=== PATIENT | male | born 1965 | race Caucasian/White ===

== ENCOUNTER 2021-12-14 18:40 | Inpatient (IN) | payer MEDICAID ==
[~2021-12-14] VITALS: Ht 170.2 cm; Wt 76.5 kg
[2021-12-14] MEDS ORDERED: SODIUM CHLORIDE 0.9% 500 ML IV ONE (19:45)
[2021-12-14 21:16] LABS: Basophils # (auto) 0 10 ^3/uL (0-0.2); Eosinophils # (auto) 0.1 10 ^3/uL (0-0.8); Monocytes # (auto) 1.2 10 ^3/uL (0-1.3); Monocytes % (auto) 7.3 % (0.0-12.0); Red Cell Distribution Width 15.3 % (11.8-14.3)
[2021-12-14 21:17] LABS: Basophils % (auto) 0.3 % (0.0-2.0); Eosinophils % (auto) 0.6 % (0.0-7.0); Hematocrit 39.1 % (41.0-53.0); Hemoglobin 12.6 g/dL (13.5-17.5); Lymphocytes # (auto) 0.7 10 ^3/uL (0.4-5.4); Lymphocytes % (auto) 4.6 % (10.0-50.0); Mean Corpuscular Hemoglobin 27.8 pg (28.0-32.0); Mean Corpuscular Hgb Conc. 32.4 g/dL (32.0-36.0); Mean Corpuscular Volume 85.9 fL (80.0-100.0); Neutrophils % (auto) 87.2 % (37.0-80.0); Red Blood Cells 4.55 10^6/uL (4.5-5.90)
[2021-12-14 21:33] LABS: Albumin 2.4 g/dL (3.4-5.0)
[2021-12-14 21:36] LABS: BUN/Creatinine Ratio 14.6; Bilirubin, Total 0.2 mg/dL (0.2-1.0); Total Protein 7.9 g/dL (6.4-8.2)
[2021-12-14 21:56] LABS: Urine Bacteria NONE SEEN /hpf (None Seen); Urine Blood Negative /uL (Negative); Urine Hyaline Cast FEW /lpf (0 - 2); Urine Specific Gravity 1.013 (1.001-1.035); Urine WBC 27 /hpf (0 - 3)
[2021-12-14] MEDS ORDERED: SODIUM CHLORIDE 0.9% 1,000 ML IV ONE (22:15)
[2021-12-14] MEDS ORDERED: VANCOMYCIN 1GM/250ML 250 ML IV ONE (22:15)
[2021-12-14] MEDS ORDERED: PIPERACILLIN-TAZOB 3.375GM 100 ML IV ONE (22:15)
[2021-12-14] MEDS ORDERED: POTASSIUM CHL 20 Meq TABLET PO ONE (23:00)
[2021-12-14] MEDS ORDERED: MORPHINE SULFATE INJ 2 MG/ml SYRG IV PRN (23:00)
[2021-12-14] MEDS ORDERED: TEMAZEPAM 15 MG CAP PO PRN (23:00)
[2021-12-14] MEDS ORDERED: ONDANSETRON HCL 4 MG/2 ML VIAL IV PRN (23:00)
[2021-12-14] MEDS ORDERED: VANCOMYCIN PER PHARMACY 0 MG IV SCH (23:00)
[2021-12-14] MEDS ORDERED: ACETAMINOPHEN 325 MG TAB PO PRN (23:00)
[2021-12-14] MEDS ORDERED: HYDROcodone-ACET 5/325MG TAB PO PRN (23:00)
[2021-12-14] MEDS: SODIUM CHLORIDE 0.9% 1,000 ML IV SCH (23:44)
[2021-12-15 06:40] LABS: Basophils # (auto) 0.1 10 ^3/uL (0-0.2); Basophils % (auto) 0.3 % (0.0-2.0); Eosinophils # (auto) 0.1 10 ^3/uL (0-0.8); Eosinophils % (auto) 0.8 % (0.0-7.0); Hematocrit 36.7 % (41.0-53.0); Hemoglobin 11.7 g/dL (13.5-17.5); Lymphocytes # (auto) 0.7 10 ^3/uL (0.4-5.4); Lymphocytes % (auto) 4.5 % (10.0-50.0); Mean Corpuscular Hemoglobin 27.8 pg (28.0-32.0); Mean Corpuscular Hgb Conc. 31.8 g/dL (32.0-36.0); Mean Corpuscular Volume 87.3 fL (80.0-100.0); Monocytes # (auto) 1.2 10 ^3/uL (0-1.3); Monocytes % (auto) 7.2 % (0.0-12.0); Neutrophils # (auto) 14.3 10 ^3/uL (1.6-8.6); Neutrophils % (auto) 87.2 % (37.0-80.0); Red Blood Cells 4.21 10^6/uL (4.5-5.90); Red Cell Distribution Width 15.2 % (11.8-14.3); White Blood Cell 16.4 10^3/uL (4.4-10.8)
[2021-12-15 06:56] LABS: Albumin 2.1 g/dL (3.4-5.0); Calcium 8.6 mg/dL (8.5-10.1); Potassium 3.4 mmol/L (3.5-5.1)
[2021-12-15 06:59] LABS: BUN/Creatinine Ratio 18.2
[2021-12-15 07:00] LABS: Bilirubin, Total 0.2 mg/dL (0.2-1.0); Total Protein 6.7 g/dL (6.4-8.2)
[2021-12-15] MEDS: cefTRIAXone 1GM/50ML D5W 50 ML IV SCH (09:18)
[2021-12-15] MEDS: SODIUM CHLORIDE 0.9% 1,000 ML IV SCH ×2 (09:38→23:06)
[2021-12-15] MEDS: ENOXAPARIN SOD 30 MG/0.3 ML SYRINGE SC SCH (10:12)
[2021-12-15] MEDS: PANTOPRAZOLE 40 MG TAB PO SCH (10:12)
[2021-12-15 17:00] VITALS: BP 130/76
[2021-12-15] MEDS ORDERED: VANCOMYCIN 1GM/250ML 250 ML IV ONE (17:00)
[2021-12-15] MEDS ORDERED: IBUP600T27 PO (18:08)
[2021-12-15 19:23] LABS: Magnesium 1.9 mg/dL (1.6-2.6); Phosphorus 3.5 mg/dL (2.5-4.90)
[2021-12-15 20:32] LABS: Urine Bacteria FEW /hpf (None Seen); Urine Blood Negative /uL (Negative); Urine Specific Gravity 1.007 (1.001-1.035); Urine WBC 5 /hpf (0 - 3)
[2021-12-15 21:55] VITALS: BP 121/75
[2021-12-16 04:45] VITALS: BP 148/96
[2021-12-16] MEDS: SODIUM CHLORIDE 0.9% 1,000 ML IV SCH (05:40)
[2021-12-16 06:47] LABS: Eosinophils # (auto) 0.1 10 ^3/uL (0-0.8); Neutrophils # (auto) 8.1 10 ^3/uL (1.6-8.6)
[2021-12-16 06:51] LABS: Basophils # (auto) 0 10 ^3/uL (0-0.2); Basophils % (auto) 0.5 % (0.0-2.0); Eosinophils % (auto) 0.9 % (0.0-7.0); Hematocrit 34.6 % (41.0-53.0); Hemoglobin 11.2 g/dL (13.5-17.5); Lymphocytes % (auto) 9.4 % (10.0-50.0); Mean Corpuscular Hgb Conc. 32.2 g/dL (32.0-36.0); Mean Corpuscular Volume 86.9 fL (80.0-100.0); Monocytes % (auto) 9.8 % (0.0-12.0); Neutrophils % (auto) 79.4 % (37.0-80.0); Red Blood Cells 3.99 10^6/uL (4.5-5.90); Red Cell Distribution Width 15.3 % (11.8-14.3); White Blood Cell 10.2 10^3/uL (4.4-10.8)
[2021-12-16 07:02] LABS: Calcium 7.8 mg/dL (8.5-10.1); Potassium 3.6 mmol/L (3.5-5.1)
[2021-12-16 08:00] VITALS: BP 149/60
[2021-12-16 09:00] VITALS: BP 149/90
[2021-12-16] MEDS: cefTRIAXone 1GM/50ML D5W 50 ML IV SCH (09:11)
[2021-12-16] MEDS: ENOXAPARIN SOD 30 MG/0.3 ML SYRINGE SC SCH (09:12)
[2021-12-16] MEDS: PANTOPRAZOLE 40 MG TAB PO SCH (09:12)
[2021-12-16] MEDS: VANCOMYCIN 1GM/250ML 250 ML IV SCH ×2 (11:39→23:12)
[2021-12-16 12:23] LABS: Hepatitis C Antibody Negative (Negative)
[2021-12-16 13:00] VITALS: BP 149/89
[2021-12-16] MEDS ORDERED: POTASSIUM EFFERVESENT TAB 25 MEQ PO ONE (13:30)
[2021-12-16] MEDS: SODIUM BICARBONATE 50ML VIAL 50 ML in SOD CHL 0.45% 1,000 ML IV SCH (14:34)
[2021-12-16 16:27] VITALS: BP 139/94
[2021-12-16 22:00] VITALS: BP 132/80
[2021-12-17] MEDS: SODIUM BICARBONATE 50ML VIAL 50 ML in SOD CHL 0.45% 1,000 ML IV SCH ×3 (00:44→23:00)
[2021-12-17 05:00] VITALS: BP 139/83
[2021-12-17 06:21] LABS: Basophils # (auto) 0.1 10 ^3/uL (0-0.2); Eosinophils # (auto) 0.1 10 ^3/uL (0-0.8); Hemoglobin 10.7 g/dL (13.5-17.5); Lymphocytes # (auto) 1.1 10 ^3/uL (0.4-5.4); Monocytes # (auto) 1.1 10 ^3/uL (0-1.3); White Blood Cell 10.8 10^3/uL (4.4-10.8)
[2021-12-17 06:24] LABS: Basophils % (auto) 0.6 % (0.0-2.0); Eosinophils % (auto) 0.9 % (0.0-7.0); Hematocrit 32.4 % (41.0-53.0); Mean Corpuscular Hemoglobin 28.1 pg (28.0-32.0); Mean Corpuscular Hgb Conc. 32.9 g/dL (32.0-36.0); Mean Corpuscular Volume 85.3 fL (80.0-100.0); Neutrophils # (auto) 8.5 10 ^3/uL (1.6-8.6); Neutrophils % (auto) 78.5 % (37.0-80.0); Red Cell Distribution Width 14.9 % (11.8-14.3)
[2021-12-17 06:25] LABS: Calcium 7.7 mg/dL (8.5-10.1); Potassium 3.4 mmol/L (3.5-5.1)
[2021-12-17 06:27] LABS: BUN/Creatinine Ratio 16.5
[2021-12-17 09:00] VITALS: BP 129/80
[2021-12-17] MEDS: cefTRIAXone 1GM/50ML D5W 50 ML IV SCH (09:40)
[2021-12-17] MEDS: PANTOPRAZOLE 40 MG TAB PO SCH (09:40)
[2021-12-17] MEDS: ENOXAPARIN SOD 40 MG/0.4 ML SYRINGE SC SCH (09:41)
[2021-12-17] MEDS: VANCOMYCIN 1GM/250ML 250 ML IV SCH ×2 (12:07→23:33)
[2021-12-17 13:01] VITALS: BP 126/88
[2021-12-17 16:34] VITALS: BP 148/87
[2021-12-17] MEDS ORDERED: POTASSIUM EFFERVESENT TAB 25 MEQ GT ONE (18:15)
[2021-12-17 22:00] VITALS: BP 138/89
[2021-12-18 05:00] VITALS: BP 136/86
[2021-12-18 06:24] LABS: Basophils # (auto) 0.1 10 ^3/uL (0-0.2); Hemoglobin 10.9 g/dL (13.5-17.5); Lymphocytes # (auto) 1.2 10 ^3/uL (0.4-5.4); White Blood Cell 10.9 10^3/uL (4.4-10.8)
[2021-12-18 06:26] LABS: Basophils % (auto) 0.8 % (0.0-2.0); Eosinophils # (auto) 0.1 10 ^3/uL (0-0.8); Eosinophils % (auto) 1.3 % (0.0-7.0); Hematocrit 32.8 % (41.0-53.0); Mean Corpuscular Hgb Conc. 33.1 g/dL (32.0-36.0); Mean Corpuscular Volume 84.5 fL (80.0-100.0); Monocytes % (auto) 8.9 % (0.0-12.0); Neutrophils # (auto) 8.5 10 ^3/uL (1.6-8.6); Red Blood Cells 3.88 10^6/uL (4.5-5.90); Red Cell Distribution Width 14.8 % (11.8-14.3)
[2021-12-18 06:45] LABS: BUN/Creatinine Ratio 13.7; Calcium 7.9 mg/dL (8.5-10.1); Potassium 3.5 mmol/L (3.5-5.1)
[2021-12-18 08:00] VITALS: BP 130/83
[2021-12-18] MEDS: SODIUM BICARBONATE 50ML VIAL 50 ML in SOD CHL 0.45% 1,000 ML IV SCH ×2 (09:48→18:00)
[2021-12-18] MEDS: cefTRIAXone 1GM/50ML D5W 50 ML IV SCH (09:49)
[2021-12-18] MEDS: PANTOPRAZOLE 40 MG TAB PO SCH (09:50)
[2021-12-18] MEDS: ENOXAPARIN SOD 40 MG/0.4 ML SYRINGE SC SCH (09:51)
[2021-12-18] MEDS: VANCOMYCIN 1GM/250ML 250 ML IV SCH (12:34)
[2021-12-18 13:00] VITALS: BP 130/87
[2021-12-18 16:48] VITALS: BP 139/86
[2021-12-18 22:00] VITALS: BP 147/87
[2021-12-19] MEDS: VANCOMYCIN 1GM/250ML 250 ML IV SCH (03:07)
[2021-12-19] MEDS: SODIUM BICARBONATE 50ML VIAL 50 ML in SOD CHL 0.45% 1,000 ML IV SCH (04:30)
[2021-12-19 05:00] VITALS: BP 140/87
[2021-12-19 06:06] LABS: Basophils # (auto) 0.1 10 ^3/uL (0-0.2); Eosinophils # (auto) 0.2 10 ^3/uL (0-0.8); Hemoglobin 10.9 g/dL (13.5-17.5); Red Cell Distribution Width 14.9 % (11.8-14.3)
[2021-12-19 06:11] LABS: Basophils % (auto) 0.7 % (0.0-2.0); Eosinophils % (auto) 1.6 % (0.0-7.0); Hematocrit 34.3 % (41.0-53.0); Lymphocytes # (auto) 1.2 10 ^3/uL (0.4-5.4); Lymphocytes % (auto) 10.1 % (10.0-50.0); Mean Corpuscular Hemoglobin 27.2 pg (28.0-32.0); Mean Corpuscular Hgb Conc. 31.7 g/dL (32.0-36.0); Mean Corpuscular Volume 85.8 fL (80.0-100.0); Monocytes # (auto) 0.8 10 ^3/uL (0-1.3); Neutrophils # (auto) 9.6 10 ^3/uL (1.6-8.6); Neutrophils % (auto) 80.6 % (37.0-80.0); Red Blood Cells 3.99 10^6/uL (4.5-5.90)
[2021-12-19 06:31] LABS: BUN/Creatinine Ratio 14.1; Calcium 8.1 mg/dL (8.5-10.1); Potassium 4.1 mmol/L (3.5-5.1)
[2021-12-19 08:00] VITALS: BP 129/96
[2021-12-19 09:00] VITALS: BP 129/96
[2021-12-19] MEDS: cefTRIAXone 1GM/50ML D5W 50 ML IV SCH (10:45)
[2021-12-19] MEDS: PANTOPRAZOLE 40 MG TAB PO SCH (10:46)
[2021-12-19] MEDS: ENOXAPARIN SOD 40 MG/0.4 ML SYRINGE SC SCH (10:46)
[2021-12-19] MEDS ORDERED: CEPH-510 PO (11:05)
[2021-12-19 11:53] VITALS: BP 129/96
== END 2021-12-19 12:30 | disposition home or self-care (01) | DRG 720 ==
LOC: ER 18:42 → OVERFLOW 23:03 → WEST WING 12-15 17:15
PROVIDERS: ADMIT Nurse Practitioner; ATTEND Internal Medicine Pulmonary Disease
DX: A41.9 Sepsis, unspecified organism (principal); N17.0 Acute kidney failure with tubular necrosis; E87.1 Hypo-osmolality and hyponatremia; E88.09 Other disorders of plasma-protein metabolism, not elsewhere classified; D72.829 Elevated white blood cell count, unspecified; S80.01XA Contusion of right knee, initial encounter; L03.115 Cellulitis of right lower limb; E87.6 Hypokalemia; N18.9 Chronic kidney disease, unspecified; Z20.822 Contact with and (suspected) exposure to COVID-19; B95.1 Streptococcus, group B, as the cause of diseases classified elsewhere; W18.39XA Other fall on same level, initial encounter; Y93.89 Activity, other specified; Y92.89 Other specified places as the place of occurrence of the external cause; Y99.8 Other external cause status; Z83.3 Family history of diabetes mellitus
CPT/HCPCS: 36415; 73700; 76775; 80048; 80053; 80202; 81001; 82306; 82570; 83605; 83735; 83880; 83935; 83970; 84100; 84156; 84300; 84484; 85025; 86803; 87040; 87081; 87205; 87340; 93005; 93971; 96361; 96365; 96366; 96367; 96368; 96372; 96375; G0378; J0696; J2543

== ENCOUNTER 2021-12-27 14:52 | Inpatient (IN) | payer MEDICAID ==
[~2021-12-27] VITALS: Ht 170.2 cm; Wt 77.8 kg
[~2021-12-27 14:52] MED LIST: CEPH-510 PO; IBUP600T27 PO
[2021-12-27] MEDS ORDERED: CEFEPIME 1GM/ 50ML 50 ML IV ONE (20:00)
[2021-12-27] MEDS ORDERED: VANCOMYCIN 1GM/250ML 250 ML IV ONE (20:00)
[2021-12-27 20:47] LABS: Basophils # (auto) 0.1 10 ^3/uL (0-0.2)
[2021-12-27 20:49] LABS: Eosinophils # (auto) 0.2 10 ^3/uL (0-0.8); Eosinophils % (auto) 2.5 % (0.0-7.0); Hematocrit 33.4 % (41.0-53.0); Hemoglobin 10.4 g/dL (13.5-17.5); Lymphocytes # (auto) 1.5 10 ^3/uL (0.4-5.4); Lymphocytes % (auto) 16.9 % (10.0-50.0); Mean Corpuscular Hemoglobin 27.2 pg (28.0-32.0); Mean Corpuscular Hgb Conc. 31.1 g/dL (32.0-36.0); Mean Corpuscular Volume 87.3 fL (80.0-100.0); Monocytes # (auto) 0.7 10 ^3/uL (0-1.3); Monocytes % (auto) 7.6 % (0.0-12.0); Neutrophils # (auto) 6.6 10 ^3/uL (1.6-8.6); Red Blood Cells 3.83 10^6/uL (4.5-5.90); Red Cell Distribution Width 15.4 % (11.8-14.3); White Blood Cell 9.2 10^3/uL (4.4-10.8)
[2021-12-27 21:05] LABS: Albumin 2.9 g/dL (3.4-5.0); Calcium 8.5 mg/dL (8.5-10.1); Potassium 3.8 mmol/L (3.5-5.1)
[2021-12-27 21:14] LABS: BUN/Creatinine Ratio 23.5; Bilirubin, Total 0.2 mg/dL (0.2-1.0); CRP High Sensitivity 1.83 mg/dL (< 0.3); Total Protein 7.7 g/dL (6.4-8.2)
[2021-12-27] MEDS ORDERED: TEMAZEPAM 15 MG CAP PO PRN (23:00)
[2021-12-27] MEDS ORDERED: HYDROcodone-ACET 5/325MG TAB PO PRN (23:00)
[2021-12-27] MEDS ORDERED: ONDANSETRON HCL 4 MG/2 ML VIAL IV PRN (23:00)
[2021-12-27] MEDS ORDERED: ACETAMINOPHEN 325 MG TAB PO PRN (23:00)
[2021-12-28 05:10] LABS: Basophils # (auto) 0.1 10 ^3/uL (0-0.2); Lymphocytes # (auto) 0.9 10 ^3/uL (0.4-5.4); Lymphocytes % (auto) 9.9 % (10.0-50.0); Monocytes # (auto) 0.7 10 ^3/uL (0-1.3); White Blood Cell 8.8 10^3/uL (4.4-10.8)
[2021-12-28 05:12] LABS: Basophils % (auto) 0.7 % (0.0-2.0); Eosinophils # (auto) 0.4 10 ^3/uL (0-0.8); Eosinophils % (auto) 4.1 % (0.0-7.0); Hematocrit 30.9 % (41.0-53.0); Hemoglobin 10.4 g/dL (13.5-17.5); Mean Corpuscular Hemoglobin 28.8 pg (28.0-32.0); Mean Corpuscular Hgb Conc. 33.6 g/dL (32.0-36.0); Mean Corpuscular Volume 85.9 fL (80.0-100.0); Monocytes % (auto) 8.1 % (0.0-12.0); Neutrophils # (auto) 6.8 10 ^3/uL (1.6-8.6); Neutrophils % (auto) 77.2 % (37.0-80.0); Red Blood Cells 3.59 10^6/uL (4.5-5.90); Red Cell Distribution Width 15.1 % (11.8-14.3)
[2021-12-28 05:28] LABS: BUN/Creatinine Ratio 20.9; Calcium 8.4 mg/dL (8.5-10.1); Potassium 4.6 mmol/L (3.5-5.1)
[2021-12-28] MEDS: CLINDAMYCIN 600MG IV 50 ML IV SCH ×3 (06:15→22:04)
[2021-12-28] MEDS: cefTRIAXone 1GM/50ML D5W 50 ML IV SCH (10:02)
[2021-12-28] MEDS: ENOXAPARIN SOD 40 MG/0.4 ML SYRINGE SC SCH (10:02)
[2021-12-28] MEDS: PANTOPRAZOLE 40 MG TAB PO SCH (10:02)
[2021-12-28 17:00] VITALS: BP 142/89
[2021-12-28 22:00] VITALS: BP 131/86
[2021-12-29 05:00] VITALS: BP 124/83
[2021-12-29] MEDS ORDERED: VANCOMYCIN 1GM/250ML 250 ML IV SCH (06:00)
[2021-12-29 07:10] LABS: Basophils # (auto) 0.1 10 ^3/uL (0-0.2); Eosinophils # (auto) 0.3 10 ^3/uL (0-0.8); Eosinophils % (auto) 4.9 % (0.0-7.0); Lymphocytes # (auto) 1.2 10 ^3/uL (0.4-5.4); Neutrophils # (auto) 4.8 10 ^3/uL (1.6-8.6); White Blood Cell 6.9 10^3/uL (4.4-10.8)
[2021-12-29 07:13] LABS: Basophils % (auto) 1.5 % (0.0-2.0); Hematocrit 33.1 % (41.0-53.0); Hemoglobin 10.8 g/dL (13.5-17.5); Lymphocytes % (auto) 16.9 % (10.0-50.0); Mean Corpuscular Hemoglobin 28.3 pg (28.0-32.0); Mean Corpuscular Hgb Conc. 32.7 g/dL (32.0-36.0); Mean Corpuscular Volume 86.7 fL (80.0-100.0); Monocytes # (auto) 0.5 10 ^3/uL (0-1.3); Monocytes % (auto) 7.6 % (0.0-12.0); Neutrophils % (auto) 69.1 % (37.0-80.0); Nucleated Red Blood Cells % 0.1 %; Red Blood Cells 3.82 10^6/uL (4.5-5.90); Red Cell Distribution Width 15.7 % (11.8-14.3)
[2021-12-29 07:14] LABS: Potassium 4.2 mmol/L (3.5-5.1)
[2021-12-29 07:25] LABS: BUN/Creatinine Ratio 20.2; Calcium 8.2 mg/dL (8.5-10.1)
[2021-12-29] MEDS ORDERED: VANCOMYCIN PER PHARMACY 0 MG IV SCH (07:45)
[2021-12-29 09:24] VITALS: BP 130/90
[2021-12-29] MEDS: PANTOPRAZOLE 40 MG TAB PO SCH (10:10)
[2021-12-29] MEDS: ENOXAPARIN SOD 40 MG/0.4 ML SYRINGE SC SCH (10:10)
[2021-12-29] MEDS: cefTRIAXone 1GM/50ML D5W 50 ML IV SCH (10:10)
[2021-12-29 13:00] VITALS: BP 129/85
[2021-12-29 17:06] VITALS: BP 132/92
[2021-12-29] MEDS: VANCOMYCIN 1GM/250ML 250 ML IV SCH (18:20)
[2021-12-29 22:00] VITALS: BP 125/87
[2021-12-30 05:00] VITALS: BP 132/79
[2021-12-30] MEDS: VANCOMYCIN 1GM/250ML 250 ML IV SCH ×2 (05:46→18:21)
[2021-12-30 07:06] LABS: Basophils # (auto) 0.1 10 ^3/uL (0-0.2); Eosinophils # (auto) 0.3 10 ^3/uL (0-0.8); Hemoglobin 11.3 g/dL (13.5-17.5); Monocytes # (auto) 0.5 10 ^3/uL (0-1.3)
[2021-12-30 07:08] LABS: Basophils % (auto) 1.9 % (0.0-2.0); Eosinophils % (auto) 4.6 % (0.0-7.0); Hematocrit 34.7 % (41.0-53.0); Mean Corpuscular Hemoglobin 28.2 pg (28.0-32.0); Mean Corpuscular Hgb Conc. 32.7 g/dL (32.0-36.0); Mean Corpuscular Volume 86.1 fL (80.0-100.0); Neutrophils # (auto) 5.3 10 ^3/uL (1.6-8.6); Neutrophils % (auto) 72.5 % (37.0-80.0); Red Blood Cells 4.03 10^6/uL (4.5-5.90); Red Cell Distribution Width 15.3 % (11.8-14.3); White Blood Cell 7.4 10^3/uL (4.4-10.8)
[2021-12-30 07:42] LABS: Calcium 8.8 mg/dL (8.5-10.1); Potassium 4.7 mmol/L (3.5-5.1)
[2021-12-30 07:44] LABS: BUN/Creatinine Ratio 20.2
[2021-12-30 09:00] VITALS: BP 140/95
[2021-12-30] MEDS: cefTRIAXone 1GM/50ML D5W 50 ML IV SCH (11:13)
[2021-12-30] MEDS: ENOXAPARIN SOD 40 MG/0.4 ML SYRINGE SC SCH (11:14)
[2021-12-30 13:00] VITALS: BP 125/88
[2021-12-30 17:13] VITALS: BP 139/91
[2021-12-30 21:49] VITALS: BP 124/89
[2021-12-31] MEDS: VANCOMYCIN 1GM/250ML 250 ML IV SCH (04:30)
[2021-12-31 05:16] VITALS: BP 142/93
[2021-12-31 06:52] LABS: Calcium 8.9 mg/dL (8.5-10.1)
[2021-12-31 06:54] LABS: BUN/Creatinine Ratio 18.8
[2021-12-31 06:56] LABS: Basophils # (auto) 0.1 10 ^3/uL (0-0.2); Basophils % (auto) 1.7 % (0.0-2.0); Eosinophils # (auto) 0.3 10 ^3/uL (0-0.8); Monocytes # (auto) 0.5 10 ^3/uL (0-1.3); Red Blood Cells 4.14 10^6/uL (4.5-5.90)
[2021-12-31 07:08] LABS: Eosinophils % (auto) 4.2 % (0.0-7.0); Hematocrit 36.1 % (41.0-53.0); Hemoglobin 11.6 g/dL (13.5-17.5); Lymphocytes # (auto) 1.2 10 ^3/uL (0.4-5.4); Lymphocytes % (auto) 17.6 % (10.0-50.0); Mean Corpuscular Hemoglobin 27.9 pg (28.0-32.0); Mean Corpuscular Hgb Conc. 32.1 g/dL (32.0-36.0); Mean Corpuscular Volume 87.1 fL (80.0-100.0); Neutrophils # (auto) 4.9 10 ^3/uL (1.6-8.6); Neutrophils % (auto) 69.5 % (37.0-80.0); Red Cell Distribution Width 15.6 % (11.8-14.3)
[2021-12-31 09:00] VITALS: BP 140/94
[2021-12-31] MEDS: cefTRIAXone 1GM/50ML D5W 50 ML IV SCH (09:00)
[2021-12-31] MEDS ORDERED: CEPH-510 PO (09:53)
[2021-12-31] MEDS ORDERED: SULF400T11 PO (09:53)
[2021-12-31] MEDS: ENOXAPARIN SOD 40 MG/0.4 ML SYRINGE SC SCH (10:00)
[2021-12-31 13:00] VITALS: BP 143/98
[2021-12-31 17:00] VITALS: BP 129/92
[2021-12-31 17:04] VITALS: BP 129/84
== END 2021-12-31 19:15 | disposition home or self-care (01) | DRG 383 ==
LOC: ER 14:52 → OVERFLOW 23:05 → CENTRAL 12-28 15:05
PROVIDERS: ADMIT Nurse Practitioner; ATTEND Internal Medicine Pulmonary Disease
DX: L03.115 Cellulitis of right lower limb (principal); M22.41 Chondromalacia patellae, right knee; S83.519A Sprain of anterior cruciate ligament of unspecified knee, initial encounter; M70.41 Prepatellar bursitis, right knee; X58.XXXA Exposure to other specified factors, initial encounter; Z83.3 Family history of diabetes mellitus; Z83.511 Family history of glaucoma; Z20.822 Contact with and (suspected) exposure to COVID-19; Z84.89 Family history of other specified conditions; Z85.820 Personal history of malignant melanoma of skin; Y93.89 Activity, other specified; Y92.89 Other specified places as the place of occurrence of the external cause; Y99.8 Other external cause status
CPT/HCPCS: 36415; 73700; 73721; 80048; 80053; 80202; 85025; 85652; 86141; 87077; 87081; 87186; 87205; 96365; 96367; 96368; 96372; G0378; J0696; J3490